=== PATIENT | female | born 1980 | race Caucasian/White ===

== ENCOUNTER → 2017-09-17 | Outpatient (CLI) | payer OTHER ==
[~2017-09-17] MED LIST: DICLOXACILLIN250 M2 OR; IBUPROFEN 600600 M1 PO; LANOLIN56 GM; LORTAB 5 MG/5001 TAB PO
== END ==
LOC: ULTRA 09:17
DX: R10.11 Right upper quadrant pain (principal)

== ENCOUNTER → 2018-04-17 | Outpatient (CLI) | payer OTHER | LOC: CAT 09:28 | DX: K76.89 Other specified diseases of liver (principal); R11.0 Nausea; Z68.20 Body mass index [BMI] 20.0-20.9, adult ==